=== PATIENT | male | born 1975 | race Caucasian/White ===

== ENCOUNTER 2024-03-06 09:08 | Emergency (ER) | payer OTHER ==
[~2024-03-06] VITALS: Ht 190.5 cm; Wt 68.0 kg
[2024-03-06] MEDS ORDERED: Tetracaine HCl/Pf 0.5% Opth Soln 4 ml BOTHEYES ONE (10:20)
[2024-03-06] MEDS ORDERED: Fluorescein Sod 1MG Opth Strips BOTHEYES ONE (10:20)
[2024-03-06] MEDS ORDERED: Ofloxacin 0.3% Opth Soln 5 ML RIGHTEYE ONE (11:00)
== END 2024-03-06 11:14 | disposition home or self-care (01) ==
LOC: ER 09:08
DX: T15.01XA Foreign body in cornea, right eye, initial encounter (principal); H16.001 Unspecified corneal ulcer, right eye; W44.E0XA Non-magnetic metal object unspecified, entering into or through a natural orifice, initial encounter; Z88.8 Allergy status to other drugs, medicaments and biological substances
CPT/HCPCS: 65222; 99283-25; A9270